=== PATIENT | male | born 1960 | race African-American/Black ===

== ENCOUNTER 2017-04-09 18:37 | Inpatient (IN) | payer OTHER ==
[2017-04-09 19:18] VITALS: BMI 23.0
--- NOTE | 2017-04-09 19:43 | HP ---
COWS - Scale Resting Pulse: 0= NE 80 or Below Sweatin= Chills/Flushing Restless Observation: 3= Extraneous Movement Pupil Size: 0= Normal to Room Light Bone or Joint Aches: 2= Severe Diffuse Aches Runny Nose/ Eye Tearin= Runny Nose/Eyes GI Upset > 30mins: 1= Stomach Cramp Tremor Observation: 2= Slight Tremor Visible Yawning Observation: 0= None Anxiety or Irritability: 2=Irritable/Anxious Goose Flesh Skin: 0=Smooth Skin COWS Score: 13 CIWA Score - CIWA Score Nausea/Vomitin-Mild Nausea/No Vomiting Muscle Tremors: 4-Moderate,w/Arms Extend Anxiety: 4-Mod. Anxious/Guarded Agitation: 4-Moderately Restless Paroxysmal Sweats: 1-Minimal Palms Moist Orientation: 0-Oriented Tacttile Disturbances: 0-None Auditory Disturbances: 0-None Visual Disturbances: 0-None Headache: 0-None Present CIWA-Ar Total Score: 14 Admission ROS S - HPI Chief Complaint: WITHDRAWAL SX Allergies/Adverse Reactions: Allergies Allergy/AdvReac Type Severity Reaction Status Date / Time No Known Allergies Allergy Verified 04/09/17 19:15 History of Present Illness: 56 YEARS OLD MALE WITH LONG HISTORY OF ALCOHOL OPIUM DEPENDENCE DENIES MEDICAL ISSUE HAS DEPRESSION TREATED WITH REMERON AND VITAMIN C IS ADMITTED TO DETOX Exam Limitations: No Limitations - Ebola screening Have you traveled outside of the country in the last 21 days: No Have you had contact with anyone from an Ebola affected area: No Have you been sick,other than usual withdrawal symptoms: No Do you have a fever: No - Review of Systems Constitutional: Chills, Loss of Appetite, Changes in sleep, Unintentional Wgt. Loss, Unexplained wgt Loss EENT: reports: No Symptoms Reported Respiratory: reports: No Symptoms reported Cardiac: reports: No Symptoms Reported GI: reports: Nausea, Poor Appetite, Poor Fluid Intake, Abdominal cramping : reports: No Symptoms Reported Musculoskeletal: reports: No Symptoms Reported Integumentary: reports: Other (FUNGAL FEET) Neuro: reports: Seizure (1991 COCAINE INDUCED), Tremors Endocrine: reports: No Symptoms Reported Hematology: reports: No Symptoms Reported Psychiatric: reports: Judgement Intact, Orientated x3, Depressed Other Systems: Reviewed and Negative Patient History - Patient Medical History Hx Anemia: No Hx Asthma: No Hx Chronic Obstructive Pulmonary Disease (COPD): No Hx Cancer: No Hx Cardiac Disorders: No Hx Congestive Heart Failure: No Hx Hypertension: No Hx Hypercholesterolemia: No Hx Pacemaker: No HX Cerebrovascular Accident: No Hx Seizures: Yes (COCAINE INDUCED) Hx Dementia: No Hx Diabetes: No Hx Gastrointestinal Disorders: No Hx Liver Disease: No Hx Genitourinary Disorders: No Hx Sexually Transmitted Disorders: No Hx Renal Disease (ESRD): No Hx Thyroid Disease: No Hx Human Immunodeficiency Virus (HIV): No Hx Hepatitis C: No Hx Depression: Yes Hx Suicide Attempt: No Hx Bipolar Disorder: No Hx Schizophrenia: No - Patient Surgical History Past Surgical History: Yes Hx Neurologic Surgery: No Hx Cataract Extraction: No Hx Cardiac Surgery: No Hx Lung Surgery: No Hx Breast Surgery: No Hx Breast Biopsy: No Hx Abdominal Surgery: No Hx Appendectomy: No Hx Cholecystectomy: No Hx Genitourinary Surgery: No Hx Orthopedic Surgery: Yes (JAW 1993 LEFT ) Anesthesia Reaction: No - PPD History Previous Implant?: Yes Documented Results: Negative w/o proof Implanted On Prior [facility] Admission?: No PPD to be Administered?: Yes - Smoking Cessation Smoking history: Current every day smoker Have you smoked in the past 12 months: Yes Aproximately how many cigarettes per day: 10 Cigars Per Day: 0 Hx Chewing Tobacco Use: No Initiated information on smoking cessation: Yes 'Breaking Loose' booklet given: 04/09/17 - Substance & Tx. History Hx Alcohol Use: Yes Hx Substance Use: Yes Substance Use Type: Alcohol, Cocaine, Heroin, Marijuana Hx Substance Use Treatment: Yes - Substances Abused Alcohol Route: Oral Frequency: 3-6 times per week Amount used: 1/2 PINT VOLKA Age of first use: 31 Date of Last Use: 04/08/17 Heroin Route: Inhalation Frequency: Daily Amount used: 3 BAGS Age of first use: 31 Date of Last Use: 04/08/17 Cocaine Route: Smoking Frequency: 3-6 times per week Amount used: 30$ Age of first use: 41 Date of Last Use: 04/07/17 Marijuana/Hashish Route: Smoking Frequency: 1-2 times per week Amount used: JOINT Age of first use: 17 Date of Last Use: 04/09/17 Family Disease History - Family Disease History Family History: Denies Admission Physical Exam [facility] - Vital Signs Vital Signs: Vital Signs - 24 hr 04/09/17 19:09 Temperature 98.6 F Pulse Rate 64 Respiratory 18 Rate Blood Pressure 121/73 - Physical General Appearance: Yes: Appropriately Dressed, Mild Distress, Thin, Tremorous, Irritable, Sweating, Anxious HEENTM: Yes: Hearing grossly Normal, Normal ENT Inspection, Normocephalic, Normal Voice Respiratory: Yes: Chest Non-Tender, Lungs Clear, Normal Breath Sounds, No Respiratory Distress, No Accessory Muscle Use Neck: Yes: Supple, Trachea in good position Breast: Yes: Breasts Symetrical Cardiology: Yes: Regular Rhythm, S1, S2, Bradycardia Abdominal: Yes: Non Tender, Soft Genitourinary: Yes: Within Normal Limits Back: Yes: Normal Inspection Musculoskeletal: Yes: full range of Motion, Gait Steady, Back pain, Muscle Pain Extremities: Yes: Normal Inspection, Normal Range of Motion, Non-Tender, Tremors Neurological: Yes: Fully Oriented, Alert, Motor Strength 5/5, Normal Response, Depressed Affect Integumentary: Yes: Warm, Other (FUNGAL TOES, FACE SKIN ABRASION) Lymphatic: Yes: Within Normal Limits - Diagnostic (1) Alcohol dependence with uncomplicated withdrawal Current Visit: Yes Status: Acute (2) Opioid dependence with withdrawal Current Visit: Yes Status: Acute (3) Cocaine dependence, uncomplicated Current Visit: Yes Status: Chronic (4) Cannabis dependence, uncomplicated Current Visit: Yes Status: Chronic (5) Nicotine dependence Current Visit: Yes Status: Acute Qualifiers: Nicotine product type: cigarettes Substance use status: in withdrawal Qualified Code(s): F17.213 - Nicotine dependence, cigarettes, with withdrawal (6) Weight loss Current Visit: Yes Status: Acute (7) Depression (emotion) Current Visit: Yes Status: Suspected Qualifiers: Depression Type: dysthymia Qualified Code(s): F34.1 - Dysthymic disorder Cleared for Admission [facility] - Detox or Rehab [facility] Level of Care: Medically Managed Detox Regimen/Protocol: Methadone/Librium [facility] Breath Alcohol Content Breath Alcohol Content: 0 Urine Drug Screen - Results Drug Screen Negative: No Urine Drug Screen Results: THC-Marijuana, JAVON-Cocaine, OPI-Opiates
[2017-04-09] MEDS ORDERED: NICOTINE POLACRILEX 2 MG GUM BC PRN (19:55)
[2017-04-09] MEDS ORDERED: MAGNESIUM CITRATE 300 ML BOTTLE PO PRN (19:55)
[2017-04-09] MEDS ORDERED: MAG HYDROX/AL HYDROX/SIMETH 30 ML UNIT-DOSE CUP PO PRN (19:55)
[2017-04-09] MEDS ORDERED: guaiFENesin/D-METHORPHAN HB 10 ML UNIT-DOSE CUPS PO PRN (19:55)
[2017-04-09] MEDS ORDERED: METHADONE HCL 10 MG TABLET (FOR DETOX USE ONLY) PO ONE ×2 (19:55→23:00)
[2017-04-09] MEDS ORDERED: MENTHOL/PHENOL 1 EACH UD MM PRN (19:55)
[2017-04-09] MEDS ORDERED: MAGNESIUM HYDROX 2400MG/30ML ORAL SUSPENSION 30 ML CUP PO PRN (19:55)
[2017-04-09] MEDS ORDERED: ACETAMINOPHEN 325 MG TABLET (FP) PO PRN (19:55)
[2017-04-09] MEDS ORDERED: P-EPHED 60MG/TRIPROLIDI 2.5MG TABLET PO PRN (19:55)
[2017-04-09] MEDS ORDERED: IBUPROFEN 400 MG TABLET (FP) PO PRN (19:55)
[2017-04-09] MEDS ORDERED: LOPERAMIDE HCL 2 MG CAPSULE PO PRN (19:55)
[2017-04-09] MEDS ORDERED: BACITRACIN 0.9 GM PACKET TP ONE (19:57)
[2017-04-09] MEDS: chlordiazePOXIDE HCL 25 MG CAPSULE PO PRN (21:02)
[2017-04-09] MEDS: NICOTINE 14 MG/24 HOURS TOPICAL PATCH TD SCH (21:08)
[2017-04-09] MEDS: chlordiazePOXIDE HCL 25 MG CAPSULE PO SCH (22:12)
[2017-04-09] MEDS: THIAMINE HCL 100 MG TABLET (FP) PO SCH (22:12)
[2017-04-09] MEDS: CLOTRIMAZOLE 1% CREAM 15 GM TUBE TP SCH (22:55)
[2017-04-10] MEDS: chlordiazePOXIDE HCL 25 MG CAPSULE PO PRN (02:19)
[2017-04-10] MEDS: diphenhydrAMINE HCL 50 MG CAPSULE PO PRN (02:19)
[2017-04-10] MEDS: chlordiazePOXIDE HCL 25 MG CAPSULE PO SCH ×4 (05:50→22:10)
[2017-04-10 07:54] LABS: URINE APPEARANCE CLEAR; URINE BILIRUBIN NEGATIVE (NEGATIVE); URINE BLOOD NEGATIVE (NEGATIVE); URINE COLOR YELLOW; URINE GLUCOSE (UA) 1+ (NEGATIVE); URINE KETONE NEGATIVE (NEGATIVE); URINE LEUK ESTERASE NEGATIVE (NEGATIVE); URINE NITRITE NEGATIVE (NEGATIVE); URINE PROTEIN NEGATIVE (NEGATIVE); URINE UROBILINOGEN NEGATIVE E.U./dl (0.2-1.0)
--- NOTE | 2017-04-10 08:54 | CONSULT ---
[facility] Psychiatric Consult - Data Date of interview: 04/10/17 Admission source: [facility] Identifying data: This is 56 years old male with p-sychiatric hospitalization history inbtoxicatewd with: Alcohol, Cocaine, Cannabis, Opioids,Nicotine Substance Abuse History: - Smoking Cessation. Smoking history: Current every day smoker. Have you smoked in the past 12 months: Yes. Aproximately how many cigarettes per day: 10. Cigars Per Day: 0. Hx Chewing Tobacco Use: No. Initiated information on smoking cessation: Yes. 'Breaking Loose' booklet given : 04/09/17. - Substance & Tx. History. Hx Alcohol Use: Yes. Hx Substance Use : Yes. Substance Use Type: Alcohol, Cocaine, Heroin, Marijuana. Hx Substance Use Treatment: Yes. - Substances Abused. Alcohol. Route: Oral. Frequency : 3-6 times per week. Amount used: 1/2 PINT VOLKA. Age of first use: 31. Date of Last Use: 04/08/17. Heroin. Route: Inhalation. Frequency: Daily. Amount used: 3 BAGS. Age of first use: 31. Date of Last Use: 04/08/17. Cocaine. Route: Smoking. Frequency: 3-6 times per week. Amount used: 30$. Age of first use: 41. Date of Last Use: 04/07/17. Marijuana/Hashish. Route : Smoking. Frequency: 1-2 times per week. Amount used: JOINT. Age of first use: 17. Date of Last Use: 04/09/17 Medical History: Weight loss Psychiatric History: Patient reports history of dep-ression, reports taking prior to admission unknown medication for depression, promissed to call home and tell provider what he is taking now. Patient reports only psychiatric admission at [facility] on 2013 with depressed mood, denies suicidal history Physical/Sexual Abuse/Trauma History: Denies Additional Comment: Observation. Detox Unit Care Protocol Mental Status Exam - Mental Status Exam Alert and Oriented to: Person Cognitive Function: Fair Patient Appearance: Well Groomed Mood: Apprehensive Affect: Mood Congruent Patient Behavior: Cooperative Speech Pattern: Appropriate Voice Loudness: Mildly Soft/Quiet Thought Process: Goal Oriented Thought Disorder: Being Controlled Hallucinations: Denies Suicidal Ideation: Denies Homicidal Ideation: Denies Insight/Judgement: Fair Sleep: Difficulty falling asleep Appetite: Weight loss Muscle strength/Tone: Normal Gait/Station: Normal Additional Comments: Observation. Detox Unit Care Protocol Psychiatric Findings - Problem List ([place] 1, 2,3) (1) Alcohol dependence with uncomplicated withdrawal Current Visit: Yes Status: Acute (2) Nicotine dependence Current Visit: Yes Status: Acute Qualifiers: Nicotine product type: cigarettes Substance use status: in withdrawal Qualified Code(s): F17.213 - Nicotine dependence, cigarettes, with withdrawal (3) Opioid dependence with withdrawal Current Visit: Yes Status: Acute (4) Weight loss Current Visit: Yes Status: Acute (5) Cannabis dependence, uncomplicated Current Visit: Yes Status: Chronic (6) Cocaine dependence, uncomplicated Current Visit: Yes Status: Chronic (7) Drug-induced mood disorder Current Visit: Yes Status: Acute - Initial Treatment Plan Initial Treatment Plan: Observation. Detox Unit Care Protocol
--- NOTE | 2017-04-10 09:10 | PN ---
[facility] CIWA - CIWA Score Nausea/Vomitin Muscle Tremors: 3 Anxiety: 3 Agitation: 3 Paroxysmal Sweats: 1-Minimal Palms Moist Orientation: 0-Oriented Tacttile Disturbances: 1-Very Mild Itch/Numbness Auditory Disturbances: 1-Very Mild Visual Disturbances: 1-Very Mild Sensitivity Headache: 2-Mild CIWA-Ar Total Score: 18 [facility] COWS - Scale Resting Pulse: 0= [place] 80 or Below Sweatin= Chills/Flushing Restless Observation: 3= Extraneous Movement Pupil Size: 1= Pupils >than Normal Bone or Joint Aches: 2= Severe Diffuse Aches Runny Nose/ Eye Tearin= Runny Nose/Eyes GI Upset > 30mins: 3= Vomiting/Diarrhea Tremor Observation of Outstretched Hands: 2= Slight Tremor Visible Yawning Observation: 1= 1-2x During Session Anxiety or Irritability: 2=Irritable/Anxious Goose Flesh Skin: 0=Smooth Skin COWS Score: 17 [facility] Progress Note (SOAP) Subjective: ALERT,IRRITABLE,ANXIOUS,INTERRUPTED SLEEP,TREMOR,PAIN IN BODY,JOINT AND BACK Objective: 04/10/17 09:12 Vital Signs Temperature 97.2 F L 04/10/17 06:05 Pulse Rate 45 L 04/10/17 06:05 Respiratory Rate 16 04/10/17 06:05 Blood Pressure 100/60 04/10/17 06:05 O2 Sat by Pulse Oximetry (%) EKG SINUS BRADYCARDIA,LOW VOLTAGE QRS RATE 53/MIN NO CHEST PAIN,NO SOB,NO DIZZINESS Laboratory Last Values Urine Color Yellow 04/09/17 20:30 Urine Appearance Clear 04/09/17 20:30 Urine pH 6.0 (5.0-8.0) 04/09/17 20:30 Urine Protein Negative (NEGATIVE) 04/09/17 20:30 Urine Glucose (UA) 1+ (NEGATIVE) H 04/09/17 20:30 Urine Ketones Negative (NEGATIVE) 04/09/17 20:30 Urine Blood Negative (NEGATIVE) 04/09/17 20:30 Urine Nitrite Negative (NEGATIVE) 04/09/17 20:30 Urine Bilirubin Negative (NEGATIVE) 04/09/17 20:30 Urine Urobilinogen Negative E.U./dl (0.2-1.0) 04/09/17 20:30 Ur Leukocyte Esterase Negative (NEGATIVE) 04/09/17 20:30 LABS PENDING Assessment: 04/10/17 09:14 WITHDRAWAL SYMPTOM Plan: CONTINUE DETOX
[2017-04-10 09:41] LABS: MCH 29.5 pg (25.7-33.7); MCHC 31.9 g/dl (32.0-35.9); MEAN CELL VOLUME 92.5 fl (80-96); MEAN PLT VOLUME 8.8 fl (7.5-11.1); PLATELET COUNT 155 K/MM3 (134-434); RDW 15.3 % (11.9-15.9); WHITE BLOOD COUNT 6.8 K/mm3 (4.0-10.0)
[2017-04-10] MEDS ORDERED: METHADONE HCL 10 MG TABLET (FOR DETOX USE ONLY) PO SCH (10:00)
[2017-04-10 10:12] LABS: ALBUMIN 3.1 g/dl (3.4-5.0); ANION GAP 5 (8-16); CALCIUM 8.6 mg/dL (8.5-10.1); CO2 32 mmol/L (21-32); GLUCOSE,RANDOM 79 mg/dL (74-106); SGOT/AST 14 U/L (15-37); SGPT/ALT 20 U/L (12-78)
[2017-04-10 10:14] LABS: ALK PHOS 58 U/L (45-117); BILIRUBIN,TOTAL 0.3 mg/dL (0.2-1.0); CREATININE 1.2 mg/dL (0.7-1.3); TOT PROT 6.2 g/dl (6.4-8.2)
[2017-04-10] MEDS: PRENATAL VITAMINS W/ FOLIC ACID TABLET (FP) PO SCH (10:25)
[2017-04-10] MEDS: NICOTINE 14 MG/24 HOURS TOPICAL PATCH TD SCH (10:26)
[2017-04-10] MEDS: CLOTRIMAZOLE 1% CREAM 15 GM TUBE TP SCH ×2 (10:26→22:10)
[2017-04-10] MEDS: THIAMINE HCL 100 MG TABLET (FP) PO SCH (22:10)
[2017-04-11] MEDS: chlordiazePOXIDE HCL 25 MG CAPSULE PO SCH ×3 (05:24→17:39)
--- NOTE | 2017-04-11 09:44 | PN ---
[facility] CIWA - CIWA Score Nausea/Vomitin Muscle Tremors: 3 Anxiety: 2 Agitation: 2 Paroxysmal Sweats: 1-Minimal Palms Moist Orientation: 0-Oriented Tacttile Disturbances: 1-Very Mild Itch/Numbness Auditory Disturbances: 1-Very Mild Visual Disturbances: 1-Very Mild Sensitivity Headache: 2-Mild CIWA-Ar Total Score: 16 [facility] COWS - Scale Resting Pulse: 0= [place] 80 or Below Sweatin= Chills/Flushing Restless Observation: 3= Extraneous Movement Pupil Size: 1= Pupils >than Normal Bone or Joint Aches: 2= Severe Diffuse Aches Runny Nose/ Eye Tearin= Runny Nose/Eyes GI Upset > 30mins: 2= Nausea/Diarrhea Tremor Observation of Outstretched Hands: 2= Slight Tremor Visible Yawning Observation: 1= 1-2x During Session Anxiety or Irritability: 2=Irritable/Anxious Goose Flesh Skin: 0=Smooth Skin COWS Score: 16 S Progress Note (SOAP) Subjective: ALERT,IRRITABLE,ANXIOUS,INTERRUPTED SLEEP,TREMOR Objective: 04/11/17 09:44 Vital Signs Temperature 98.1 F 04/11/17 09:25 Pulse Rate 79 04/11/17 09:25 Respiratory Rate 18 04/11/17 09:25 Blood Pressure 110/61 04/11/17 09:25 O2 Sat by Pulse Oximetry (%) Laboratory Last Values WBC 6.8 K/mm3 (4.0-10.0) 04/10/17 07:00 RBC 3.76 M/mm3 (4.00-5.60) L 04/10/17 07:00 Hgb 11.1 GM/dL (11.7-16.9) L 04/10/17 07:00 Hct 34.8 % (35.4-49) L 04/10/17 07:00 MCV 92.5 fl (80-96) 04/10/17 07:00 MCHC 31.9 g/dl (32.0-35.9) L 04/10/17 07:00 RDW 15.3 % (11.9-15.9) 04/10/17 07:00 Plt Count 155 K/MM3 (134-434) 04/10/17 07:00 MPV 8.8 fl (7.5-11.1) 04/10/17 07:00 Sodium 143 mmol/L (136-145) 04/10/17 07:00 Potassium 4.2 mmol/L (3.5-5.1) 04/10/17 07:00 Chloride 106 mmol/L (98-107) 04/10/17 07:00 Carbon Dioxide 32 mmol/L (21-32) 04/10/17 07:00 Anion Gap 5 (8-16) L 04/10/17 07:00 BUN 16 mg/dL (7-18) 04/10/17 07:00 Creatinine 1.2 mg/dL (0.7-1.3) 04/10/17 07:00 Creat Clearance w eGFR > 60 (>60) 04/10/17 07:00 Random Glucose 79 mg/dL (74-106) 04/10/17 07:00 Calcium 8.6 mg/dL (8.5-10.1) 04/10/17 07:00 Total Bilirubin 0.3 mg/dL (0.2-1.0) 04/10/17 07:00 AST 14 U/L (15-37) L 04/10/17 07:00 ALT 20 U/L (12-78) 04/10/17 07:00 Alkaline Phosphatase 58 U/L (45-117) 04/10/17 07:00 Total Protein 6.2 g/dl (6.4-8.2) L 04/10/17 07:00 Albumin 3.1 g/dl (3.4-5.0) L 04/10/17 07:00 Urine Color Yellow 04/09/17 20:30 Urine Appearance Clear 04/09/17 20:30 Urine pH 6.0 (5.0-8.0) 04/09/17 20:30 Ur Specific [place] 1.025 (1.005-1.025) 04/09/17 20:30 Urine Protein Negative (NEGATIVE) 04/09/17 20:30 Urine Glucose (UA) 1+ (NEGATIVE) H 04/09/17 20:30 Urine Ketones Negative (NEGATIVE) 04/09/17 20:30 Urine Blood Negative (NEGATIVE) 04/09/17 20:30 Urine Nitrite Negative (NEGATIVE) 04/09/17 20:30 Urine Bilirubin Negative (NEGATIVE) 04/09/17 20:30 Urine Urobilinogen Negative E.U./dl (0.2-1.0) 04/09/17 20:30 Ur Leukocyte Esterase Negative (NEGATIVE) 04/09/17 20:30 RPR Titer Nonreactive (NONREACTIVE) 04/10/17 07:00 Assessment: 04/11/17 09:44 WITHDRAWAL SYMPTOM Plan: CONTINUE DETOX
[2017-04-11] MEDS: PRENATAL VITAMINS W/ FOLIC ACID TABLET (FP) PO SCH (10:58)
[2017-04-11] MEDS: NICOTINE 14 MG/24 HOURS TOPICAL PATCH TD SCH (10:59)
[2017-04-11] MEDS: METHADONE HCL 5 MG TABLET (FOR DETOX USE ONLY) PO SCH (10:59)
[2017-04-11] MEDS: CLOTRIMAZOLE 1% CREAM 15 GM TUBE TP SCH ×2 (10:59→22:04)
--- NOTE | 2017-04-11 15:52 | EKG ---
Test Reason : Blood Pressure : / mmHG Vent. Rate : 053 BPM Atrial Rate : 053 BPM P-R Int : 168 ms QRS Dur : 076 ms QT Int : 416 ms P-R-T Axes : 068 025 056 degrees QTc Int : 390 ms SINUS BRADYCARDIA LOW VOLTAGE QRS BORDERLINE ECG NO PREVIOUS ECGS AVAILABLE Confirmed by YOLIS PEREA MD ([id number]) on 04/11/2017 3:51:39 PM Referred By: Confirmed By:YOLIS PEREA MD
[2017-04-11] MEDS: chlordiazePOXIDE 5 MG CAPSULE PO SCH (22:02)
[2017-04-11] MEDS: THIAMINE HCL 100 MG TABLET (FP) PO SCH (22:02)
[2017-04-12] MEDS: chlordiazePOXIDE 5 MG CAPSULE PO SCH ×3 (06:24→17:16)
--- NOTE | 2017-04-12 09:20 | PN ---
S Progress Note (SOAP) Subjective: ALERT,IRRITABLE,ANXIOUS,INTERRUPTED SLEEP Objective: 04/12/17 09:19 Vital Signs Temperature 98.3 F 04/12/17 06:00 Pulse Rate 65 04/12/17 06:00 Respiratory Rate 18 04/12/17 06:00 Blood Pressure 105/57 04/12/17 06:00 O2 Sat by Pulse Oximetry (%) Assessment: 04/12/17 09:19 WITHDRAWAL SYMPTOM Plan: CONTINUE DETOX
--- NOTE | 2017-04-12 09:39 | PN ---
[facility] Progress Note Note: ADDENDUM IRRITATION OF PREPUCE NO ULCER STATED USING OINTMENT AT HOME BACITRACIN OINTMENT DAILY
[2017-04-12] MEDS: PRENATAL VITAMINS W/ FOLIC ACID TABLET (FP) PO SCH (10:19)
[2017-04-12] MEDS: BACITRACIN 0.9 GM PACKET TP SCH (10:19)
[2017-04-12] MEDS: CLOTRIMAZOLE 1% CREAM 15 GM TUBE TP SCH ×2 (10:19→22:04)
[2017-04-12] MEDS: METHADONE HCL 5 MG TABLET (FOR DETOX USE ONLY) PO SCH (10:19)
[2017-04-12] MEDS: NICOTINE 14 MG/24 HOURS TOPICAL PATCH TD SCH (10:19)
[2017-04-12] MEDS: chlordiazePOXIDE HCL 10 MG CAPSULE PO SCH (22:03)
[2017-04-12] MEDS: THIAMINE HCL 100 MG TABLET (FP) PO SCH (22:04)
[2017-04-12] MEDS: diphenhydrAMINE HCL 50 MG CAPSULE PO PRN (22:05)
[2017-04-13] MEDS: chlordiazePOXIDE HCL 10 MG CAPSULE PO SCH ×3 (05:30→17:45)
[2017-04-13] MEDS ORDERED: METHADONE HCL 10 MG TABLET (FOR DETOX USE ONLY) PO SCH (10:00)
--- NOTE | 2017-04-13 10:04 | PN ---
S Progress Note (SOAP) Subjective: ALERT,INTERRUPTED SLEEP Objective: 04/13/17 10:04 Vital Signs Temperature 99.0 F 04/13/17 06:01 Pulse Rate 64 04/13/17 06:01 Respiratory Rate 18 04/13/17 06:01 Blood Pressure 123/68 04/13/17 06:01 O2 Sat by Pulse Oximetry (%) Assessment: 04/13/17 10:04 WITHDRAWAL SYMPTOM Plan: CONTINUE DETOX,DISCHARGE IN AM
[2017-04-13] MEDS: PRENATAL VITAMINS W/ FOLIC ACID TABLET (FP) PO SCH (10:12)
[2017-04-13] MEDS: BACITRACIN 0.9 GM PACKET TP SCH (10:12)
[2017-04-13] MEDS: NICOTINE 14 MG/24 HOURS TOPICAL PATCH TD SCH (10:12)
[2017-04-13] MEDS: CLOTRIMAZOLE 1% CREAM 15 GM TUBE TP SCH ×2 (10:14→22:19)
[2017-04-13] MEDS: diphenhydrAMINE HCL 50 MG CAPSULE PO PRN (22:19)
[2017-04-13] MEDS: THIAMINE HCL 100 MG TABLET (FP) PO SCH (22:19)
[2017-04-14 05:53] VITALS: BP 122/71; PULSE 61; TEMP 97.2
[2017-04-14] MEDS ORDERED: METHADONE HCL 5 MG TABLET (FOR DETOX USE ONLY) PO SCH (06:00)
--- NOTE | 2017-04-14 08:00 | PN ---
S Progress Note (SOAP) Subjective: ALERT,NO COMPLAINT Objective: 04/14/17 07:58 Vital Signs Temperature 97.2 F L 04/14/17 05:52 Pulse Rate 61 04/14/17 05:52 Respiratory Rate 18 04/14/17 05:52 Blood Pressure 122/71 04/14/17 05:52 O2 Sat by Pulse Oximetry (%) Assessment: 04/14/17 07:59 DETOX COMPLETED,NO WITHDRAWAL SYMPTOM Plan: DISCHARGE TODAY,FOLLOW UP WITH AFTER CARE PROGRAM ARRANGEMENT
--- NOTE | 2017-04-14 08:08 | DS ---
[facility] Detox Discharge Summary Admission Date: 04/09/17 Discharge Date: 04/14/17 - History Present History: Alcohol Dependence, Cocaine Dependence, Opioid Dependence, Sedative Dependence Additional Comments: FOLLOW UP WITH AFTER CARE PROGRAM ARRANGEMENT Pertinent Past History: WEIGHT LOSS NICOTINE DEPENDENCE - Physical Exam Results Vital Signs: Vital Signs Temperature 97.2 F L 04/14/17 05:52 Pulse Rate 61 04/14/17 05:52 Respiratory Rate 18 04/14/17 05:52 Blood Pressure 122/71 04/14/17 05:52 O2 Sat by Pulse Oximetry (%) Pertinent Admission Physical Exam Findings: WITHDRAWAL SYMPTOM - Treatment Hospital Course: Detox Protocol Followed, Detoxed Safely, Responded well, Discharged Condition Good Patient has Accepted a Rehab Referral to: DECL[facility]ED - Medication Discharge Medications: Ambulatory Orders NK [No Known Home Medication] 04/09/17 - AMA Did Patient Leave Against Medical Advice: No
== END 2017-04-14 09:28 | disposition home or self-care (01) | DRG 773 ==
LOC: YASAS 18:37 → Y6N 19:28
PROVIDERS: ADMIT Internal Medicine; ATTEND Internal Medicine
PROC: HZ2ZZZZ Detoxification Services for Substance Abuse Treatment (ICD-10-PCS; principal; 2017-04-09)
DX: F11.23 Opioid dependence with withdrawal (principal); F10.230 Alcohol dependence with withdrawal, uncomplicated; F14.20 Cocaine dependence, uncomplicated; F12.20 Cannabis dependence, uncomplicated; F17.213 Nicotine dependence, cigarettes, with withdrawal; F19.24 Other psychoactive substance dependence with psychoactive substance-induced mood disorder; R00.1 Bradycardia, unspecified; Z86.69 Personal history of other diseases of the nervous system and sense organs; Z87.898 Personal history of other specified conditions
CPT/HCPCS: 36415; 80053; 81003; 85027; 86593; 93005; 93010